=== PATIENT | male | born 1950 | race Caucasian/White ===

== ENCOUNTER 2018-10-21 15:44 | Observation (INO) | payer MEDICARE, OTHER ==
[2018-10-21] MEDS ORDERED: ENALAPRILAT DIHYDRATE INJ/PF 2.5 MG/2 ML SDV IV ONE (17:19)
[2018-10-21] MEDS ORDERED: ASPIRIN 81 MG TABLET, CHEWABLE PO ONE (17:19)
--- NOTE | 2018-10-21 17:21 | ER Document Report ---
ED Medical Screen (RME) - General Chief Complaint: Chest Pain Stated Complaint: ABNORMAL EKG Time Seen by Provider: 10/21/18 17:18 Primary Care Provider: MARY BLUM MD [Primary Care Provider] - Follow up as needed Notes: Chief complaint: Elevated blood pressure History of complain:( obtained from----patient) 68 years old male presents today 1 month history of elevated blood pressure with 1 day history of sharp chest pain over the left precordium that is last night. Radiating to the left arm with numbness and tingling sensation. Which subsided after a while. Prior to that for the month been having on and off chest pain. Currently has no palpitation diaphoresis nausea vomiting. Father had [place] at age 40 PHYSICAL EXAMINATION: GENERAL: Well-appearing, well-nourished and in no acute distress. HEAD: Atraumatic, normocephalic. EYES: Pupils equal round and reactive to light, extraocular movements intact, conjunctiva are normal. ENT: Nares patent, oropharynx clear without exudates. Moist mucous membranes. NECK: Normal range of motion, supple without lymphadenopathy LUNGS: Breath sounds clear to auscultation bilaterally and equal. No wheezes rales or rhonchi. HEART: Regular rate and rhythm without murmurs ABDOMEN: Soft, nontender, nondistended abdomen. No guarding, no rebound. No masses appreciated. Examination of genitals-deferred Musculoskeletal: Normal range of motion, no pitting or edema. No cyanosis. NEUROLOGICAL: Cranial nerves grossly intact. Normal speech, normal gait. Normal sensory, motor exams PSYCH: Normal mood, normal affect. SKIN: Warm, Dry, normal turgor, no rashes or lesions noted. Dictation was performed using impok recognition software TRAVEL OUTSIDE OF THE [place] IN LAST 30 DAYS: No - Related Data Allergies/Adverse Reactions: ciprofloxacin [From Cipro] Allergy (Verified 10/21/18 15:47) Physical Exam - Vital signs Vitals: Temp Pulse Resp BP Pulse Ox 98.7 F 49 L 14 191/102 H 94 10/21/18 16:05 10/21/18 16:05 10/21/18 16:05 10/21/18 16:05 10/21/18 16:05 Course - Vital Signs Vital signs: Temp Pulse Resp BP Pulse Ox 98.7 F 49 L 14 191/102 H 94 02/13/19 16:05 10/21/18 16:05 10/21/18 16:05 10/21/18 16:05 10/21/18 16:05 Doctor's Discharge - Discharge Referrals: MARY BLUM MD [Primary Care Provider] - Follow up as needed
--- NOTE | 2018-10-21 17:53 | RADIOLOGY REPORT (SQ) ---
EXAM DESCRIPTION: CHEST SINGLE VIEW COMPLETED DATE/TIME: 10/21/2018 5:34 pm REASON FOR STUDY: Chest pain COMPARISON: None. EXAM PARAMETERS: NUMBER OF VIEWS: One view. TECHNIQUE: Single frontal radiographic view of the chest acquired. RADIATION DOSE: NA LIMITATIONS: None. FINDINGS: LUNGS AND PLEURA: No opacities, masses or pneumothorax. No pleural effusion. MEDIASTINUM AND HILAR STRUCTURES: No masses. Contour normal. HEART AND VASCULAR STRUCTURES: Heart normal in size. Normal vasculature. BONES: No acute findings. HARDWARE: None in the chest. OTHER: No other significant finding. IMPRESSION: NO ACUTE RADIOGRAPHIC FINDING IN THE CHEST. TECHNICAL DOCUMENTATION: JOB ID: [id number] [employer]- All Rights Reserved Reading location - IP/workstation name: [email or web address]
[2018-10-21 18:11] LABS: ABSOLUTE BASOPHILS # (AUTO) 0.1 10^3/uL (0.0-0.2); ABSOLUTE EOSINOPHILS # (AUTO) 0.3 10^3/uL (0.0-0.6); ABSOLUTE LYMPHOCYTES (AUTO) 2.2 10^3/uL (0.5-4.7); ABSOLUTE MONOCYTES (AUTO) 0.5 10^3/uL (0.1-1.4); BASOPHILS % (AUTO) 1.5 % (0-2); EOSINOPHILS % (AUTO) 5.6 % (0-6); HEMATOCRIT 47.3 % (37.9-51.0); HEMOGLOBIN 16.2 g/dL (13.5-17.0); LYMPHOCYTES % (AUTO) 35.6 % (13-45); MEAN CORPUSCULAR HEMOGLOBIN 29.3 pg (27.0-33.4); MEAN CORPUSCULAR HGB CONC 34.3 g/dL (32.0-36.0); MEAN CORPUSCULAR VOLUME 85 fl (80-97); MONOCYTES % (AUTO) 8.6 % (3-13); PLATELET COUNT 189 10^3/uL (150-450); RED BLOOD COUNT 5.55 10^6/uL (4.35-5.55); RED CELL DISTRIBUTION WIDTH 13.5 % (11.5-14.0); SEGMENTED NEUTROPHILS % (AUTO) 48.7 % (42-78); TOTAL CELLS COUNTED % (AUTO) 100 %; WHITE BLOOD COUNT 6.2 10^3/uL (4.0-10.5)
[2018-10-21 18:25] LABS: ALANINE AMINOTRANSFERASE 24 U/L (21-72); ALBUMIN 4.4 g/dL (3.5-5.0); ALKALINE PHOSPHATASE 64 U/L (38-126); ANION GAP 8 (5-19); ASPARTATE AMINO TRANSFERASE 24 U/L (17-59); BILIRUBIN,DIRECT 0.3 mg/dL (0.0-0.4); BILIRUBIN,TOTAL 0.8 mg/dL (0.2-1.3); BLOOD UREA NITROGEN 24 mg/dL (7-20); CALCIUM 9.4 mg/dL (8.4-10.2); CARBON DIOXIDE 29 mmol/L (22-30); CHLORIDE 105 mmol/L (98-107); CREATINE KINASE 60 U/L (55-170); GLUCOSE 94 mg/dL (75-110); POTASSIUM 4.4 mmol/L (3.6-5.0); SODIUM 141.9 mmol/L (137-145); TOTAL PROTEIN 6.7 g/dL (6.3-8.2)
[2018-10-21 18:36] LABS: CREATINE KINASE MB 1.02 ng/mL (<4.55)
[2018-10-21 18:37] LABS: TROPONIN I < 0.012 ng/mL
--- NOTE | 2018-10-21 19:39 | ER Document Report ---
ED General - General Chief Complaint: Chest Pain Stated Complaint: ABNORMAL EKG Time Seen by Provider: 10/21/18 17:18 Notes: Patient is a 68-year-old male with history of hypertension that presents to the emergency department for chief complaint of chest pain. Patient reports his been having left-sided chest pain off and on over the past month, only today is seemingly more intense, and he felt pain going towards his left arm last night as well. He has had some associated shortness of breath, he states he does work out every day, and does not have pain with exertion, does not seem to get better with rest. It just changes in intensity. He states his blood pressure has been much more elevated recently as well. 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 Past Medical History: Hypertension, depression/anxiety Past Surgical History: Hernia repair, biceps tendon repair, rotator cuff surgery, right total hip arthroplasty Social History: Denies alcohol, tobacco or drug use. Family History: Reviewed and noncontributory for presenting illness Allergies: Reviewed, see documented allergy list. REVIEW OF SYSTEMS: Other than noted above, the 12 point review of systems was reviewed with the patient and were negative, all pertinent findings are included in the HPI. PHYSICAL EXAMINATION: Vital signs reviewed, nursing noted reviewed. GENERAL: Well-appearing, well-nourished and in no acute distress. HEAD: Atraumatic, normocephalic. EYES: Eyes appear normal, extraocular movements intact, sclera anicteric, conjunctiva are normal. ENT: nares patent, oropharynx clear without exudates. Moist mucous membranes. NECK: Normal range of motion, supple without lymphadenopathy LUNGS: Breath sounds clear to auscultation bilaterally and equal. No wheezes rales or rhonchi. HEART: Regular rate and rhythm without murmurs ABDOMEN: Soft, nontender, normoactive bowel sounds. No rebound, guarding, or rigidity. No masses appreciated. EXTREMITIES: Nontender, good range of motion, no pitting or edema. NEUROLOGICAL: No focal neurological deficits. Moves all extremities spontaneously Motor and sensory grossly intact on exam. PSYCH: Normal mood, normal affect. SKIN: Warm, Dry, normal turgor, no rashes or lesions noted on exposed skin TRAVEL OUTSIDE OF THE [place] IN LAST 30 DAYS: No - Related Data Allergies/Adverse Reactions: ciprofloxacin [From Cipro] Allergy (Verified 10/21/18 15:47) Past Medical History - Social History Smoking Status: Never Smoker Frequency of alcohol use: Rare Family History: Reviewed & Not Pertinent Patient has suicidal ideation: No Patient has homicidal ideation: No - Past Medical History Cardiac Medical History: Reports: Hx Hypertension Renal/ Medical History: Denies: Hx Peritoneal Dialysis Psychiatric Medical History: Reports: Hx Depression Past Surgical History: Reports: Hx Orthopedic Surgery - left shoulder, left hip replacement Physical Exam - Vital signs Vitals: Temp Pulse Resp BP Pulse Ox 98.7 F 49 L 14 191/102 H 94 10/21/18 16:05 10/21/18 16:05 10/21/18 16:05 10/21/18 16:05 10/21/18 16:05 Course - Re-evaluation Re-evalutation: Patient seen and examined vital signs reviewed. Laboratory data and imaging were ordered as appropriate for the patient's presenting symptoms and complaint, with consideration of any critical or life threatening conditions that may be associated with their obtained history and exam as noted above. Patient was treated with aspirin and IV enalapril ordered by triage provider Results were reviewed when available and demonstrated negative troponin, and EKG was nonischemic, the chest x-ray was negative, I did obtain a CT angiogram of the chest, to evaluate for possible PE, given prolonged nature of the patient's pain, and waxing and waning intensity, and this was negative. The patient was re-evaluated and was stable, blood pressure was improving Evaluation was most consistent with uncontrolled hypertension, chest pain Heart score was 4 Results were discussed with the patient at this point after careful consideration I feel that that patient should be admitted to the hospital. This was discussed with the patient that it is in the best interest for their care to be admitted for further evaluation and management. Patient agreed with this plan of care. A call was placed to the admitted physician, Dr. Cao who graciously accepted the patient onto their service. *Note is created using voice recognition software and may contain spelling, syntax or grammatical errors. Laboratory 10/21/18 10/21/18 10/21/18 17:30 17:30 17:30 WBC 6.2 RBC 5.55 Hgb 16.2 Hct 47.3 MCV 85 MCH 29.3 MCHC 34.3 RDW 13.5 Plt Count 189 Seg Neutrophils % 48.7 Lymphocytes % 35.6 Monocytes % 8.6 Eosinophils % 5.6 Basophils % 1.5 Absolute Neutrophils 3.0 Absolute Lymphocytes 2.2 Absolute Monocytes 0.5 Absolute Eosinophils 0.3 Absolute Basophils 0.1 Sodium 141.9 Potassium 4.4 Chloride 105 Carbon Dioxide 29 Anion Gap 8 BUN 24 H Creatinine 1.22 Est GFR ( Amer) > 60 Est GFR (Non-Af Amer) 59 L Glucose 94 Calcium 9.4 Total Bilirubin 0.8 Direct Bilirubin 0.3 Neonat Total Bilirubin Not Reportable Neonat Direct Bilirubin Not Reportable Neonat Indirect Bili Not Reportable AST 24 ALT 24 Alkaline Phosphatase 64 Creatine Kinase 60 CK-MB (CK-2) 1.02 Troponin I < 0.012 Total Protein 6.7 Albumin 4.4 Chest X-Ray 10/21/18 17:19 IMPRESSION: NO ACUTE RADIOGRAPHIC FINDING IN THE CHEST. Chest/Abdomen CTA 10/21/18 19:40 IMPRESSION: No acute pulmonary embolism. - Vital Signs Vital signs: Temp Pulse Resp BP Pulse Ox 98.7 F 49 L 13 174/86 H 94 10/21/18 16:05 10/21/18 16:05 10/21/18 23:01 10/21/18 23:01 10/21/18 23:01 - Laboratory Result Diagrams: 10/21/18 17:30 10/21/18 17:30 Laboratory results interpreted by me: 10/21/18 17:30 BUN 24 H Est GFR (Non-Af Amer) 59 L - EKG Interpretation by Me Additional EKG results interpreted by me: EKG demonstrates sinus rhythm bradycardia with a ventricular rate of 50 bpm, slight left axis deviation, normal intervals, no evidence of acute ischemia on this EKG, this is compared with prior EKG from earlier in the day as outpatient, without acute change. Discharge - Discharge Clinical Impression: Uncontrolled hypertension Chest pain Qualifiers: Chest pain type: unspecified Qualified Code(s): R07.9 - Chest pain, unspecified Condition: Stable Disposition: ADMITTED OBSERVATION Admitting Provider: Hospitalist - Dr. Cao Unit Admitted: Telemetry
--- NOTE | 2018-10-21 20:39 | RADIOLOGY REPORT (SQ) ---
CT CHEST ANGIOGRAPHY WITHOUT THEN WITH IV CONTRAST HISTORY: Shortness of breath. COMPARISON: None. TECHNIQUE: CT angiogram of the chest with IV contrast. 3-D MIP images were obtained in coronal and sagittal reconstructions. This exam was performed according to our departmental dose-optimization program, which includes automated exposure control, adjustment of the mA and/or kV according to patient size and/or use of iterative reconstruction technique. FINDINGS: No filling defects are identified in the pulmonary trunk, main left and right pulmonary arteries, or the segmental branches. The thyroid gland is normal. No mediastinal or hilar adenopathy. The heart size is normal without pericardial effusion. No consolidation, pleural effusion, or pneumothorax is identified. The visualized upper abdomen demonstrates no acute findings. No acute osseous findings are seen. IMPRESSION: No acute pulmonary embolism.
[2018-10-21] MEDS ORDERED: DIAZEPAM 5 MG TABLET PO PRN (20:47)
[2018-10-21] MEDS ORDERED: MAG HYDROX/AL HYDROX/SIMETH SUSP 30 ML UDCUP PO PRN (20:47)
[2018-10-21] MEDS ORDERED: NITROGLYCERIN 0.4 MG/TAB 25 TAB/BOTTLE SL PRN (20:47)
[2018-10-21] MEDS ORDERED: ENALAPRILAT DIHYDRATE INJ/PF 1.25 MG/1 ML SDV IV PRN (20:50)
[2018-10-21] MEDS ORDERED: ATORVASTATIN CALCIUM 80 MG TABLET PO SCH (22:00)
[2018-10-21 22:06] LABS: CREATINE KINASE MB 0.99 ng/mL (<4.55)
[2018-10-21 22:10] LABS: TROPONIN I < 0.012 ng/mL
[2018-10-21] MEDS: HEPARIN SOD (PORCINE) 5,000 UNIT/ML 1 ML SYRINGE SUBCUT SCH (22:53)
--- NOTE | 2018-10-22 00:33 | EKG REPORT ---
SEVERITY:- NORMAL ECG - SINUS RHYTHM : Confirmed by: Glory Chen MD 22-Oct-2018 00:32:32
[2018-10-22 04:07] LABS: CREATINE KINASE MB 0.86 ng/mL (<4.55)
[2018-10-22 04:10] LABS: TROPONIN I < 0.012 ng/mL
--- NOTE | 2018-10-22 04:48 | PDOC H&P ---
History of Present Illness Admission Date/PCP: 10/21/18 20:56 MARY BLUM MD Patient complains of: Left-sided chest pain History of Present Illness: BUDDY MCLEOD is a 68 year old male with a past medical history of depression and hypertension presents 1 month after the onset of intermittent left-sided chest pain which is 3 out of 5 intensity radiating to the left shoulder reproducible by palpation to the chest wall but accompanied by shortness of frances ath and palpitations. He denies exacerbation by regular exercise, 8 mile bike ride every other day. He denies alleviating factors. He admits recent uncontrolled blood pressure in the 180 systolic range. He is concerned about heart rate in the 50s and subsequently stopped atenolol recently. In the emergency room he has an unremarkable workup he is referred to the hospitalist for observation. He denies recent cardiac stress test or trauma to the chest wall Past Medical History Cardiac Medical History: Reports: Hypertension Psychiatric Medical History: Reports: Depression Past Surgical History Past Surgical History: Reports: Orthopedic Surgery - left shoulder, left hip replacement Social History Information Source: Patient Smoking Status: Never Smoker Frequency of Alcohol Use: None Drugs: None - Advance Directive Resuscitation Status: Full Code Family History Family History: CAD, Malignancy - Sister with ovarian cancer, brother with prostate cancer Parental Family History Reviewed: Yes Children Family History Reviewed: Yes Sibling(s) Family History Reviewed.: Yes Medication/Allergy Home Medications: Atenolol [Tenormin 50 mg Tablet] 50 mg PO DAILY 10/21/18 Citalopram Hydrobromide [Citalopram HBr] 40 mg PO DAILY 10/21/18 Allergies/Adverse Reactions: ciprofloxacin [From Cipro] Allergy (Verified 10/21/18 15:47) Review of Systems Constitutional: ABSENT: chills, fever(s), headache(s), weight gain, weight loss Eyes: ABSENT: visual disturbances Ears: ABSENT: hearing changes Cardiovascular: ABSENT: chest pain, dyspnea on exertion, edema, orthropnea, palpitations Respiratory: ABSENT: cough, hemoptysis Gastrointestinal: ABSENT: abdominal pain, constipation, diarrhea, hematemesis, hematochezia, nausea, vomiting Genitourinary: ABSENT: dysuria, hematuria Musculoskeletal: ABSENT: joint swelling Integumentary: ABSENT: rash, wounds Neurological: ABSENT: abnormal gait, abnormal speech, confusion, dizziness, focal weakness, syncope Psychiatric: ABSENT: anxiety, depression, homidical ideation, suicidal ideation Endocrine: ABSENT: cold intolerance, heat intolerance, polydipsia, polyuria Hematologic/Lymphatic: ABSENT: easy bleeding, easy bruising Physical Exam Vital Signs: Temp Pulse Resp BP Pulse Ox 98.5 F 54 L 18 163/78 H 97 10/22/18 00:00 10/22/18 00:00 10/22/18 00:00 10/22/18 00:00 10/22/18 00:00 Intake & Output 10/20/18 10/21/18 10/22/18 11:59 11:59 11:59 Weight 100.5 kg General appearance: PRESENT: no acute distress, well-developed, well-nourished Head exam: PRESENT: atraumatic, normocephalic Eye exam: PRESENT: conjunctiva pink, EOMI, PERRLA. ABSENT: scleral icterus Ear exam: PRESENT: normal external ear exam Mouth exam: PRESENT: moist, tongue midline Neck exam: ABSENT: carotid bruit, JVD, lymphadenopathy, thyromegaly Respiratory exam: PRESENT: clear to auscultation lina. ABSENT: rales, rhonchi, wheezes Cardiovascular exam: PRESENT: RRR, other - Left upper chest wall pain to palpation. ABSENT: diastolic murmur, rubs, systolic murmur Pulses: PRESENT: normal dorsalis pedis pul Vascular exam: PRESENT: normal capillary refill GI/Abdominal exam: PRESENT: normal bowel sounds, soft. ABSENT: distended, guarding, mass, organolmegaly, rebound, tenderness Rectal exam: PRESENT: deferred Extremities exam: PRESENT: full ROM. ABSENT: calf tenderness, clubbing, pedal edema Neurological exam: PRESENT: alert, awake, oriented to person, oriented to place, oriented to time, oriented to situation, CN II-XII grossly intact. ABSENT: motor sensory deficit Psychiatric exam: PRESENT: appropriate affect, normal mood. ABSENT: homicidal ideation, suicidal ideation Skin exam: PRESENT: dry, intact, warm. ABSENT: cyanosis, rash Results Laboratory Results: 10/21/18 17:30 10/21/18 17:30 10/21/18 10/21/18 17:30 17:30 WBC 6.2 RBC 5.55 Hgb 16.2 Hct 47.3 MCV 85 MCH 29.3 MCHC 34.3 RDW 13.5 Plt Count 189 Seg Neutrophils % 48.7 Lymphocytes % 35.6 Monocytes % 8.6 Eosinophils % 5.6 Basophils % 1.5 Absolute Neutrophils 3.0 Absolute Lymphocytes 2.2 Absolute Monocytes 0.5 Absolute Eosinophils 0.3 Absolute Basophils 0.1 Sodium 141.9 Potassium 4.4 Chloride 105 Carbon Dioxide 29 Anion Gap 8 BUN 24 H Creatinine 1.22 Est GFR ( Amer) > 60 Est GFR (Non-Af Amer) 59 L Glucose 94 Calcium 9.4 Total Bilirubin 0.8 AST 24 ALT 24 Alkaline Phosphatase 64 Total Protein 6.7 Albumin 4.4 10/21/18 10/21/18 10/21/18 17:30 17:30 21:14 Creatine Kinase 60 CK-MB (CK-2) 1.02 0.99 Troponin I < 0.012 < 0.012 10/22/18 10/22/18 03:27 03:27 Creatine Kinase 48 L CK-MB (CK-2) 0.86 Troponin I < 0.012 Impressions: Chest X-Ray 10/21/18 17:19 IMPRESSION: NO ACUTE RADIOGRAPHIC FINDING IN THE CHEST. Chest/Abdomen CTA 10/21/18 19:40 IMPRESSION: No acute pulmonary embolism. Assessment & Plan - Diagnosis (1) Atypical chest pain Is this a current diagnosis for this admission?: Yes Plan: Atypical chest pain though the patient's pain is atypical there are multiple risk factors for coronary artery disease and subsequently will observe and evaluation of acute coronary syndrome versus coronary artery disease with anginal equivalents. Cardiac monitoring blood pressure Q6 hours ,TSH, lipid profile, serial cardiac enzymes and cardiac stress test (2) Uncontrolled hypertension Is this a current diagnosis for this admission?: Yes Plan: ALEJA inhibitor consider Norvasc - Time Time Spent: 30 to 50 Minutes
[2018-10-22] MEDS: HEPARIN SOD (PORCINE) 5,000 UNIT/ML 1 ML SYRINGE SUBCUT SCH ×3 (06:11→22:34)
[2018-10-22] MEDS ORDERED: REGADENOSON INJ 0.4 MG/5 ML DISP.SYRIN IV ONE (10:00)
[2018-10-22] MEDS: DOCUSATE SODIUM 100 MG CAPSULE PO SCH (10:54)
[2018-10-22 11:02] LABS: CREATINE KINASE MB 0.82 ng/mL (<4.55); TROPONIN I < 0.012 ng/mL
[2018-10-22] MEDS: ACETAMINOPHEN 325 MG TABLET PO PRN (14:03)
[2018-10-22] MEDS: ONDANSETRON 4 MG TAB.RAPDIS PO PRN (14:04)
[2018-10-22] MEDS ORDERED: LISINOPRIL 5 MG TABLET PO ONE ×2 (17:41→20:00)
[2018-10-22] MEDS ORDERED: HYDRALAZINE HCL INJ/PF 20 MG/1 ML SDV IV PRN (17:43)
--- NOTE | 2018-10-22 17:59 | PDOC PROGRESS REPORT ---
Subjective Progress Note for:: 10/22/18 Subjective:: BUDDY MCLEOD is a 68 year old male with a past medical history of depression and hypertension who was admitted 10/21/18 for chest pain with uncontrolled hypertension. Patient was seen on afternoon rounds with his present. He was found resting in bed comfortably on room air. He denies further episodes of chest discomfort today, but did have a headache this afternoon associated with nausea. They have numerous questions regarding dietary and lifestyle modifications. They also ask that I discontinue his atenolol and trial alternative antihypertensive; they report that he has failed atenolol multiple times in the past and that this was recently restarted by his community health specialist after finding high blood pressure and a routine eye exam. He denies fever, chills, headache, dizziness, chest pain, palpitations, dyspnea, and orthopnea. They have no other questions or concerns today. No concerns per nursing. Reason For Visit: HTN URGENCY CP Physical Exam Vital Signs: Temp Pulse Resp BP Pulse Ox 98.0 F 50 L 16 177/83 H 96 10/22/18 12:44 10/22/18 14:04 10/22/18 12:44 10/22/18 14:04 10/22/18 12:44 Intake & Output 10/21/18 10/22/18 10/23/18 06:59 06:59 06:59 Intake Total 222 Balance 222 Weight 99.1 kg General appearance: PRESENT: no acute distress, cooperative - Very pleasant, well-developed, well-nourished Head exam: PRESENT: atraumatic, normocephalic Eye exam: PRESENT: conjunctiva pink, EOMI, PERRLA. ABSENT: scleral icterus Ear exam: PRESENT: normal external ear exam Mouth exam: PRESENT: moist, tongue midline Neck exam: ABSENT: carotid bruit, JVD, lymphadenopathy, thyromegaly Respiratory exam: PRESENT: clear to auscultation lina, symmetrical, unlabored. ABSENT: rales, rhonchi, wheezes Cardiovascular exam: PRESENT: RRR, +S1, +S2. ABSENT: diastolic murmur, rubs, systolic murmur Pulses: PRESENT: normal dorsalis pedis pul Vascular exam: PRESENT: normal capillary refill GI/Abdominal exam: PRESENT: normal bowel sounds, soft. ABSENT: distended, guarding, mass, organolmegaly, rebound, tenderness Rectal exam: PRESENT: deferred Extremities exam: PRESENT: full ROM. ABSENT: calf tenderness, clubbing, pedal edema Neurological exam: PRESENT: alert, awake, oriented to person, oriented to place, oriented to time, oriented to situation, CN II-XII grossly intact. ABSENT: motor sensory deficit Psychiatric exam: PRESENT: appropriate affect, normal mood. ABSENT: homicidal ideation, suicidal ideation Skin exam: PRESENT: dry, intact, warm. ABSENT: cyanosis, rash Results Laboratory Results: 10/21/18 17:30 10/21/18 17:30 10/21/18 10/21/18 17:30 17:30 WBC 6.2 RBC 5.55 Hgb 16.2 Hct 47.3 MCV 85 MCH 29.3 MCHC 34.3 RDW 13.5 Plt Count 189 Seg Neutrophils % 48.7 Lymphocytes % 35.6 Monocytes % 8.6 Eosinophils % 5.6 Basophils % 1.5 Absolute Neutrophils 3.0 Absolute Lymphocytes 2.2 Absolute Monocytes 0.5 Absolute Eosinophils 0.3 Absolute Basophils 0.1 Sodium 141.9 Potassium 4.4 Chloride 105 Carbon Dioxide 29 Anion Gap 8 BUN 24 H Creatinine 1.22 Est GFR ( Amer) > 60 Est GFR (Non-Af Amer) 59 L Glucose 94 Calcium 9.4 Total Bilirubin 0.8 AST 24 ALT 24 Alkaline Phosphatase 64 Total Protein 6.7 Albumin 4.4 10/21/18 10/21/18 10/21/18 17:30 17:30 21:14 Creatine Kinase 60 CK-MB (CK-2) 1.02 0.99 Troponin I < 0.012 < 0.012 10/22/18 10/22/18 10/22/18 03:27 03:27 09:42 Creatine Kinase 48 L CK-MB (CK-2) 0.86 0.82 Troponin I < 0.012 < 0.012 Impressions: Chest X-Ray 10/21/18 17:19 IMPRESSION: NO ACUTE RADIOGRAPHIC FINDING IN THE CHEST. Chest/Abdomen CTA 10/21/18 19:40 IMPRESSION: No acute pulmonary embolism. Assessment & Plan - Diagnosis (1) Atypical chest pain Is this a current diagnosis for this admission?: Yes Plan: Patient was admitted to the medical floor on continuous cardiac telemetry. Troponins have been negative x4. EKG and chest x-ray reassuring. Received call from Dr. Arleen today; normal nuclear stress test. TSH, lipid panel, A1c pending. Continue daily aspirin and statin therapy. Cardiac diet. Likely musculoskeletal as the patient's discomfort was reproducible yesterday; no further occurrences today. Although, did discuss with the patient that r ecurrence of chest discomfort may warrant additional cardiac evaluation such as echocardiogram or cardiac cath. He is advised to follow-up with his primary care provider after discharge and to consider cardiology consultation for continued discomfort. (2) Bradycardia Is this a current diagnosis for this admission?: Yes Plan: The patient has been monitored on cardiac telemetry; noted to have a heart rate of 48 to high 50s. Patient reports that his heart rate at home is consistently in the mid 50s. Of note, he did take a double dose of atenolol yesterday (24-hour half-life; some atenolol remains in his system at this time). May also be physiologic as the patient is able to bicycle 8 miles daily without discomfort or heart rate elevation. Nursing reported that the patient was observed overnight to bradycardia down into the 20s and 30s while sleeping; however, he was off telemetry at this time. Stop atenolol. We will continue to monitor overnight; discussed with nursing the importance of ensuring the patient remains on telemetry. May benefit from outpatient event monitor. (3) Uncontrolled hypertension Is this a current diagnosis for this admission?: Yes Plan: Patient initially presented with blood pressures 191/102. Atenolol was held due to stress testing today. Nursing has utilized IV Vasotec for blood pressure control; persistently remains elevated to 170/80. Patient and request to discontinue atenolol as he has felt this medication in the past. We will start Norvasc nightly. One-time lisinopril 5 mg dose now, followed by initiating 10 mg dose daily in the morning along with HCTZ 12.5 mg daily. Cardiac diet, reduce caffeine intake. (4) Depression Is this a current diagnosis for this admission?: Yes Plan: Stable. Resume home dose citalopram. - Time Time Spent with patient: 35 or more minutes Medications reviewed and adjusted accordingly: Yes Anticipated discharge: Home Within: within 24 hours
[2018-10-22] MEDS ORDERED: AMLODIPINE BESYLATE 5 MG TABLET PO SCH (22:00)
[2018-10-22] MEDS ORDERED: ATORVASTATIN CALCIUM 80 MG TABLET PO SCH (22:00)
[2018-10-22] MEDS ORDERED: MELATONIN 5 MG TABLET PO SCH (22:00)
[2018-10-23] MEDS: HEPARIN SOD (PORCINE) 5,000 UNIT/ML 1 ML SYRINGE SUBCUT SCH ×2 (05:22→14:20)
[2018-10-23] MEDS: ACETAMINOPHEN 325 MG TABLET PO PRN (06:32)
[2018-10-23 06:39] LABS: ANION GAP 6 (5-19); BLOOD UREA NITROGEN 16 mg/dL (7-20); CALCIUM 8.7 mg/dL (8.4-10.2); CARBON DIOXIDE 28 mmol/L (22-30); CHLORIDE 104 mmol/L (98-107); CHOLESTEROL 174.62 mg/dL (0-200); GLUCOSE 103 mg/dL (75-110); POTASSIUM 3.9 mmol/L (3.6-5.0); SODIUM 138.1 mmol/L (137-145); TRIGLYCERIDES 173 mg/dL (<150)
[2018-10-23 06:49] LABS: DIRECT LDL 106 mg/dL (<100)
[2018-10-23 06:54] LABS: VLDL CHOLESTEROL 34.6 mg/dL (10-31)
[2018-10-23] MEDS ORDERED: LISINOPRIL 10 MG TABLET PO SCH ×2 (08:00→10:00)
[2018-10-23] MEDS ORDERED: HYDROCHLOROTHIAZIDE 12.5 MG TABLET PO SCH (08:00)
[2018-10-23] MEDS ORDERED: (PENDING PHARMACY ID) (Citalopram Hydrobromide [Citalopram Hbr] 40 MG) PO SCH (10:00)
[2018-10-23] MEDS ORDERED: CITALOPRAM HYDROBROMIDE 20 MG TABLET PO SCH (10:00)
[2018-10-23] MEDS: ONDANSETRON 4 MG TAB.RAPDIS PO PRN (10:27)
[2018-10-23] MEDS: DOCUSATE SODIUM 100 MG CAPSULE PO SCH (10:27)
[2018-10-23] MEDS ORDERED: AMLODIPINE BESYLATE 5 MG TABLET PO ONE (13:00)
[2018-10-23 17:02] VITALS: BP 163/83
[2018-10-24] MEDS ORDERED: LISINOPRIL 5 MG TABLET PO SCH (10:00)
--- NOTE | 2018-10-24 21:25 | DRAGON STRESS TEST REPORT ---
Intravenous Lexiscan Cardiolite stress test using single photon emmision computerized tomography. Date of procedure: 10/22/2018. Ordering Provider: Dr. Balaji Cao. Patient's status: In Patient Indication: Chest pain. Coronary risk factors: Age, hypertension, and dyslipidemia. Resting EKG: Sinus Rhythm. Within Normal Limits. Stress EKG: No changes of ischemia. The patient has no chest pain or discomfort, and there were no arrhythmias seen. Reason for termination: Protocol. Conclusions: Normal EKG and hemodynamic response to IV Lexiscan. Nuclear data: At rest the patient was given 14.70 millicuries of technetium 99m sestamibi injected intravenously. As per protocol rest non gated SPECT images were obtained. Subsequently the patient was given intravenous Lexiscan at a dose of 0.4 mg in 5 mL intravenously, followed by flush with normal saline. Subsequently the stress dose of 44.5 millicuries of technetium 99m sestamibi was injected intravenously. As per protocol stress gated images were obtained. Nuclear interpretation: Review of images showed that all segments of the myocardium had normal perfusion at rest, and normal perfusion post stress with IV Lexiscan. All segments of the myocardium had normal motion, contraction, and thickening by gated study. T. I D. ratio was normal at 1.14. There is no transient ischemic dilatation of the left ventricle. Computer read rest, and stress left ventricular ejection fraction were 53 %, and 57 %, respectively. Visually both the stress and rest ejection fractions were normal, and greater than 55%. Conclusion: 1. There is no scintigraphic evidence of Lexiscan induced myocardial ischemia. 2. There is no scintigraphic evidence of myocardial infarction/scar. Recommendations: Aggressive risk factor modification, and treating the underlying co- morbidities. [facility]
--- NOTE | 2018-10-27 13:54 | PDOC DISCHARGE SUMMARY ---
General - Admit/Disc Date/PCP Admission Date/Primary Care Provider: 10/21/18 20:56 MARY BLUM MD Discharge Date: 10/23/18 - Discharge Diagnosis (1) Atypical chest pain Is this a current diagnosis for this admission?: Yes Summary: Patient was admitted to the medical floor on continuous cardiac telemetry. Troponins have been negative x4. EKG and chest x-ray reassuring. Received call from Dr. Bacon; normal nuclear stress test. TSH, lipid panel, A1c acceptable. Continue daily aspirin. Recommend lifestyle modification for cholesterol management. Likely musculoskeletal as the patient's discomfort was reproducible yesterday; no further occurrences today. Although, did discuss with the patient that recurrence of chest discomfort may warrant additional cardiac evaluation such as echocardiogram or cardiac cath. He is advised to follow-up with his primary care provider after discharge and to consider outpatient cardiology consultation for continued discomfort. (2) Bradycardia Is this a current diagnosis for this admission?: Yes Summary: Asymptomatic. Orthostatic vital signs are normal. The patient has been monitored on cardiac telemetry; noted to have a heart rate of 48 to high 50s. Patient reports that his heart rate at home is consistently in the mid 50s. Of note, he did take a double dose of atenolol yesterday (24-hour half-life; some atenolol remains in his system at this time). May also be physiologic as the patient is able to bicycle 8 miles daily without discomfort or heart rate elevation. Nursing reported that the patient was observed overnight to bradycardia down into the 20s and 30s while sleeping; however, he was off telemetry at this time. Recommend discontinuing atenolol. May benefit from outpatient event monitor. (3) Uncontrolled hypertension Is this a current diagnosis for this admission?: Yes Summary: Patient initially presented with blood pressures 191/102. Atenolol was held due to stress testing today. Nursing has utilized IV Vasotec for blood pressure control; persistently remains elevated to 170/80. Patient and request to discontinue atenolol as he has failed this medicatio n in the past. He was placed on Norvasc 5 mg twice daily with improved blood pressures to 141/79. He is advised to continue a cardiac diet, reduce caffeine, and monitor blood pressures daily (keep log to present to PCP at follow up). (4) Depression Is this a current diagnosis for this admission?: Yes Summary: Stable; his home dose citalopram was continued. - Additional Information Resuscitation Status: Full Code Discharge Diet: Diabetic Discharge Activity: Activity As Tolerated, Balance Activity w/Rest, Slowly Increase Activity, Walk Frequently Prescriptions: Amlodipine Besylate [Norvasc 5 mg Tablet] 5 mg PO Q12 #60 tablet Home Medications: Citalopram Hydrobromide [Citalopram HBr] 40 mg PO DAILY 10/21/18 Acetaminophen [Tylenol 325 mg Tablet] 650 mg PO Q4HP PRN tablet 10/23/18 Amlodipine Besylate [Norvasc 5 mg Tablet] 5 mg PO Q12 #60 tablet 10/23/18 History of Present Illness History of Present Illness: Per H&P by Dr. Cao: BUDDY MCLEOD is a 68 year old male with a past medical history of depression and hypertension presents 1 month after the onset of intermittent left-sided chest pain which is 3 out of 5 intensity radiating to the left shoulder reproducible by palpation to the chest wall but accompanied by shortness of breath and palpitations. He denies exacerbation by regular exercise, 8 mile bike ride every other day. He denies alleviating factors. He admits recent uncontrolled blood pressure in the 180 systolic range. He is concerned about heart rate in the 50s and subsequently stopped atenolol recentl y. In the emergency room he has an unremarkable workup he is referred to the hospitalist for observation. He denies recent cardiac stress test or trauma to the chest wall Physical Exam Vital Signs: Temp Pulse Resp BP Pulse Ox 98.1 F 52 L 16 141/79 H 97 10/23/18 16:41 10/23/18 16:41 10/23/18 16:41 10/23/18 16:41 10/23/18 16:41 General appearance: PRESENT: no acute distress, well-developed, well-nourished Head exam: PRESENT: atraumatic, normocephalic Eye exam: PRESENT: conjunctiva pink, EOMI, PERRLA. ABSENT: scleral icterus Ear exam: PRESENT: normal external ear exam Mouth exam: PRESENT: moist, tongue midline Neck exam: ABSENT: carotid bruit, JVD, lymphadenopathy, thyromegaly Respiratory exam: PRESENT: clear to auscultation lina. ABSENT: rales, rhonchi, wheezes Cardiovascular exam: PRESENT: RRR. ABSENT: diastolic murmur, rubs, systolic murmur Pulses: PRESENT: normal dorsalis pedis pul Vascular exam: PRESENT: normal capillary refill GI/Abdominal exam: PRESENT: normal bowel sounds, soft. ABSENT: distended, guarding, mass, organolmegaly, rebound, tenderness Rectal exam: PRESENT: deferred Extremities exam: PRESENT: full ROM. ABSENT: calf tenderness, clubbing, pedal edema Neurological exam: PRESENT: alert, awake, oriented to person, oriented to place, oriented to time, oriented to situation, CN II-XII grossly intact. ABSENT: motor sensory deficit Psychiatric exam: PRESENT: appropriate affect, normal mood. ABSENT: homicidal ideation, suicidal ideation Skin exam: PRESENT: dry, intact, warm. ABSENT: cyanosis, rash Results Laboratory Results: 10/21/18 17:30 10/23/18 06:06 10/21/18 10/21/18 10/21/18 17:30 17:30 21:14 Creatine Kinase 60 CK-MB (CK-2) 1.02 0.99 Troponin I < 0.012 < 0.012 10/22/18 10/22/18 10/22/18 03:27 03:27 09:42 Creatine Kinase 48 L CK-MB (CK-2) 0.86 0.82 Troponin I < 0.012 < 0.012 Impressions: Chest X-Ray 10/21/18 17:19 IMPRESSION: NO ACUTE RADIOGRAPHIC FINDING IN THE CHEST. Chest/Abdomen CTA 10/21/18 19:40 IMPRESSION: No acute pulmonary embolism. Qualifiers - * PATIENT BEING DISCHARGED WITH ANY OF THE FOLLOWING DIAGNOSIS: No Plan Discharge Plan: Discharge to home with self care. Follow up with Primary Care Provider within 1 week. Return to the Emergency Department as needed for concerning symptoms. Time Spent: Less than 30 Minutes
== END 2018-10-23 18:39 | disposition home or self-care (01) ==
LOC: ER 15:44 → EH 20:56 → 4S 23:48
PROVIDERS: ADMIT Internal Medicine; ATTEND Internal Medicine
DX: R07.89 Other chest pain (principal); I10 Essential (primary) hypertension; R00.1 Bradycardia, unspecified; F32.9 Major depressive disorder, single episode, unspecified; R51 Headache; R11.0 Nausea; R20.0 Anesthesia of skin; R20.2 Paresthesia of skin; Z82.49 Family history of ischemic heart disease and other diseases of the circulatory system; Z79.899 Other long term (current) drug therapy
CPT/HCPCS: 93005; 99285; 96374; 36415 ×3; 84439; 82553 ×2; 82550 ×2; 84443; 85025; 80048; 80053; 84484 ×2; 83036; 80061; 93017; 71045; 78452; 71275; 93010; A9500; J2785; A9270 ×14; J3490 ×5; J1644 ×3; Q9969; S0119

== ENCOUNTER 2019-09-23 15:50 | Emergency (ER) | payer MEDICARE, OTHER ==
[2019-09-23] MEDS ORDERED: DIPH/PERTUSS(ACELL)/TETANUS VAC/PF 0.5 ML SYR (>=10YO) IM ONE (16:04)
[2019-09-23] MEDS ORDERED: OXYCODONE-ACETAMINOPHEN 5-325 MG TABLET PO ONE (16:04)
--- NOTE | 2019-09-23 16:06 | ER Document Report ---
ED Medical Screen (RME) - General Chief Complaint: Laceration Stated Complaint: LEFT SECOND DIGIT/CUT WITH SAW Time Seen by Provider: 09/23/19 15:59 Primary Care Provider: MARY BLUM MD [Primary Care Provider] - Follow up as needed Mode of Arrival: Ambulatory Information source: Patient Notes: This 69-year-old male presents with laceration to the left index finger. Reports he was using a circular saw when he cut himself. Does not remember when his last tetanus was. Not taking anticoagulants finger still bleeding. Large avulsion laceration noted to the palmar side of his left index finger. No fingernail injury. Patient still has full range of motion. I have greeted and performed a rapid initial assessment of this patient. A comprehensive ED assessment and evaluation of the patient, analysis of test results and completion of the medical decision making process will be conducted by additional ED providers. TRAVEL OUTSIDE OF THE [place] IN LAST 30 DAYS: No - Related Data Allergies/Adverse Reactions: ciprofloxacin [From Cipro] Allergy (Verified 10/21/18 15:47) Home Medications: amlodipine, cetalopram Past Medical History - Past Medical History Cardiac Medical History: Reports: Hx Hypertension Renal/ Medical History: Denies: Hx Peritoneal Dialysis Psychiatric Medical History: Reports: Hx Depression Past Surgical History: Reports: Hx Orthopedic Surgery - left shoulder, left hip replacement Physical Exam - Vital signs Vitals: Temp Pulse Resp BP Pulse Ox 98.1 F 72 12 148/85 H 98 09/23/19 15:58 09/23/19 15:58 09/23/19 15:58 09/23/19 15:58 09/23/19 15:58 Course - Vital Signs Vital signs: Temp Pulse Resp BP Pulse Ox 98.1 F 72 12 148/85 H 98 09/23/19 15:58 09/23/19 15:58 09/23/19 15:58 09/23/19 15:58 09/23/19 15:58 Doctor's Discharge - Discharge Referrals: MARY BLUM MD [Primary Care Provider] - Follow up as needed
--- NOTE | 2019-09-23 16:37 | RADIOLOGY REPORT (SQ) ---
EXAM DESCRIPTION: FINGER LEFT COMPLETED DATE/TIME: 09/23/2019 4:26 pm REASON FOR STUDY: finger lac- cut with circular saw index finger COMPARISON: None. NUMBER OF VIEWS: Three views. TECHNIQUE: AP, lateral, and oblique images acquired of the left second finger. LIMITATIONS: None. FINDINGS: MINERALIZATION: Normal. BONES: No acute fracture or dislocation. No worrisome bone lesions. SOFT TISSUES: Laceration palmar surface 2nd phalanx. No foreign body. OTHER: No other significant finding. IMPRESSION: No fracture or foreign body. TECHNICAL DOCUMENTATION: JOB ID: [id number] [employer]- All Rights Reserved Reading location - IP/workstation name: [email or web address]
[2019-09-23] MEDS ORDERED: LIDOCAINE 1% INJ-PF (10 MG/ML) 30 ML SDV INJ ONE (17:40)
--- NOTE | 2019-09-23 17:41 | ER Document Report ---
HPI - HPI Patient complains to provider of: finger laceration Time Seen by Provider: 09/23/19 15:59 Onset: Just prior to arrival Onset/Duration: Sudden Quality of pain: Achy Pain Level: 5 Context: This 69-year-old male presents with laceration to the left index finger. Reports he was using a circular saw when he cut himself. Does not remember when his last tetanus was. Not taking anticoagulants finger still bleeding. Large avulsion laceration noted to the palmar side of his left index finger. No fingernail injury. Patient still has full range of motion. Associated Symptoms: None Exacerbated by: Denies Relieved by: Denies Similar symptoms previously: No Recently seen / treated by doctor: No Past Medical History - General Information source: Patient - Social History Smoking Status: Unknown if Ever Smoked Cigarette use (# per day): No Frequency of alcohol use: None Drug Abuse: None Occupation: [employer] Lives with: Family Family History: CAD, Malignancy - Sister with ovarian cancer, brother with prostate cancer Patient has suicidal ideation: No Patient has homicidal ideation: No - Past Medical History Cardiac Medical History: Reports: Hx Hypertension Renal/ Medical History: Denies: Hx Peritoneal Dialysis Psychiatric Medical History: Reports: Hx Depression Past Surgical History: Reports: Hx Orthopedic Surgery - left shoulder, left hip replacement Vertical Provider Document - CONSTITUTIONAL Agree With Documented VS: Yes Exam Limitations: No Limitations General Appearance: WD/WN, No Apparent Distress - INFECTION CONTROL TRAVEL OUTSIDE OF THE [place] IN LAST 30 DAYS: No - HEENT HEENT: Atraumatic, Normocephalic - NECK Neck: Supple - RESPIRATORY Respiratory: No Respiratory Distress - CARDIOVASCULAR Cardiovascular: Regular Rate - MUSCULOSKELETAL/EXTREMETIES Musculoskeletal/Extremeties: MAEW, FROM, Tender - Left index finger with multiple lacerations, skin avulsion, tears to the palmar side, no fingernail injury. Cap refill normal for age good radial pulse. Patient has full range of motion can extend and flex finger without problems denies numbness and tingling. - NEURO Level of Consciousness: Awake, Alert Motor/Sensory: No Motor Deficit Course - Re-evaluation Re-evalutation: 09/23/19 19:27 Patient presents with laceration to his left index finger palmar side. He reports he is working with a circular saw. Multiple lacerations and skin tears with avulsion to the index finger. Tetanus was given with Percocet. His finger was soaked in normal saline and Shur-Clens. The area was cleaned well with no rmal saline and Shur-Clens after being soaked. 4 sutures were placed. Area was secured with Steri-Strips. A splint was placed. Patient was instructed on signs of infection. He was placed on Keflex and Percocet for the pain. He was instructed to return immediately for any signs of infection concerns. He was also instructed follow-up here for suture removal. He verbalized understanding to all information. Finger X-Ray 09/23/19 16:04 IMPRESSION: No fracture or foreign body. - Vital Signs Vital signs: Temp Pulse Resp BP Pulse Ox 98.1 F 72 12 148/85 H 98 09/23/19 15:58 09/23/19 15:58 09/23/19 15:58 09/23/19 15:58 09/23/19 15:58 - Diagnostic Test Radiology reviewed: Image reviewed, Reports reviewed Procedures - Immobilization Left 2nd digit Immobilizer type: Finger splint (Static) Performed by: PCT Post-Proc Neuro Vasc Exam: Unchanged from pre-exam - Laceration/Wound Repair Left 2nd digit Wound length (cm): 3 - multiple lacerations, avulsion, tears Wound's Depth, Shape: Irregular Laceration pre-procedure: Shur-Clens applied Anesthetic type: 1% Lidocaine Volume Anesthetic (mLs): 2 Wound explored: Clean Irrigated w/ Saline (mLs): 500 Wound Repaired With: Sutures Suture Size/Type: 4:0, Prolene Number of Sutures: 4 Layer Closure?: No Post-procedure NV exam normal: Yes Complications: No Hands front picture: 1 - multiple lacerations with a skin avulsion and tears. Finger laceration piece together with four sutures secured with Steri-Strips splint placed Discharge - Discharge Clinical Impression: Laceration of left index finger Qualifiers: Encounter type: initial encounter Damage to nail status: without damage Foreign body presence: without foreign body Qualified Code(s): S61.211A - Laceration without foreign body of left index finger without damage to nail, initial encounter Condition: Stable Disposition: HOME, SELF-CARE Instructions: Laceration Care ([facility]), Oral Narcotic Medication ([facility]), Prophylactic Antibiotic ([facility]), Soap Cleansing ([facility]), Tetanus Immunization Given ([facility]) Additional Instructions: *You have been treated for a left index finger laceration with suture repair *Take medication as prescribed *Monitor your finger for signs of infection such as redness swelling warmth discharge increased pain *Keep the area clean change the dressing at least once a day maintain the splint to protect your finger *Follow up here in 14 days for suture removal *Return to the emergency department earlier for any signs of infection. Monitor your blood pressure. Your blood pressure was elevated today. This may be because you were anxious, in pain or because you need medication. It is important to follow up with your primary care provider for full evaluation. Prescriptions: Cephalexin Monohydrate [Keflex 500 mg Capsule] 500 mg PO QID #20 capsule Oxycodone HCl/Acetaminophen [Percocet 5-325 mg Tablet] 1 tab PO ASDIR PRN #15 tablet PRN Reason: Forms: Elevated Blood Pressure Referrals: MARY BLUM MD [Primary Care Provider] - Follow up as needed
[2019-09-23 18:50] VITALS: BP 142/80
== END 2019-09-23 18:51 | disposition home or self-care (01) ==
LOC: ER 15:50
DX: S61.211A Laceration without foreign body of left index finger without damage to nail, initial encounter (principal); W29.8XXA Contact with other powered hand tools and household machinery, initial encounter; Y93.89 Activity, other specified; Y92.89 Other specified places as the place of occurrence of the external cause; Z23 Encounter for immunization; I10 Essential (primary) hypertension
CPT/HCPCS: 99283; 90471; 73140; 90715; 12002; J3490; A9270

== ENCOUNTER 2019-10-07 09:45 | Emergency (ER) | payer MEDICARE, OTHER ==
[2019-10-07 09:52] VITALS: BP 163/95
--- NOTE | 2019-10-07 10:24 | ER Document Report ---
HPI - HPI Patient complains to provider of: suture removal Time Seen by Provider: 10/07/19 10:22 Onset: Other Quality of pain: No pain Context: 69-year-old male presents emergency department with request for suture removal. Patient was seen here September 23 after he cut his finger on a saw. He reports site feels fine no pain reports some numbness to the finger tip. He reports he did follow-up with his primary care provider. No other complaints. Associated Symptoms: None Exacerbated by: Denies Relieved by: Denies Similar symptoms previously: Yes Recently seen / treated by doctor: Yes Past Medical History - General Information source: Patient - Social History Smoking Status: Unknown if Ever Smoked Frequency of alcohol use: None Drug Abuse: None Lives with: Family Family History: CAD, Malignancy - Sister with ovarian cancer, brother with prostate cancer - Past Medical History Cardiac Medical History: Reports: Hx Hypertension Renal/ Medical History: Denies: Hx Peritoneal Dialysis Psychiatric Medical History: Reports: Hx Depression Past Surgical History: Reports: Hx Orthopedic Surgery - left shoulder, left hip replacement Vertical Provider Document - CONSTITUTIONAL Agree With Documented VS: Yes Exam Limitations: No Limitations General Appearance: WD/WN, No Apparent Distress - INFECTION CONTROL TRAVEL OUTSIDE OF THE [place] IN LAST 30 DAYS: No - HEENT HEENT: Atraumatic, Normocephalic - NECK Neck: Supple - RESPIRATORY Respiratory: No Respiratory Distress - CARDIOVASCULAR Cardiovascular: Regular Rate - MUSCULOSKELETAL/EXTREMETIES Musculoskeletal/Extremeties: MAEW, FROM, Non-Tender - NEURO Level of Consciousness: Awake, Alert, Appropriate Motor/Sensory: No Motor Deficit - DERM Integumentary: Warm, Dry Course - Re-evaluation Re-evalutation: 10/07/19 19:17 69-year-old male presents for suture removal from his left index finger Site looks benign sutures removed. Patient was instructed to continue to monitor the site for signs of infection. He verbalized understanding. - Vital Signs Vital signs: Temp Pulse Resp BP Pulse Ox 98.2 F 63 16 163/95 H 96 10/07/19 09:51 10/07/19 09:51 10/07/19 09:51 10/07/19 09:51 10/07/19 09:51 Discharge - Discharge Clinical Impression: Encounter for removal of sutures Condition: Stable Disposition: HOME, SELF-CARE Instructions: Suture Removal Additional Instructions: *You have been treated for suture removal *Continue to monitor the site for signs of infection such as increasing pain, redness, swelling, warmth *Keep the finger clean *Follow up with a primary care provider for recheck within one week *Return to ED for signs of infection, worsening condition,changes, needs Monitor your blood pressure. Your blood pressure was elevated today. This may be because you were anxious, in pain or because you need medication. It is important to follow up with your primary care provider for full evaluation. Forms: Elevated Blood Pressure Referrals: MARY BLUM MD [Primary Care Provider] - Follow up as needed
== END 2019-10-07 10:40 | disposition home or self-care (01) ==
LOC: ER 09:45
DX: S61.211D Laceration without foreign body of left index finger without damage to nail, subsequent encounter (principal); W29.8XXD Contact with other powered hand tools and household machinery, subsequent encounter